=== PATIENT | female | born 1965 | race Caucasian/White ===

== ENCOUNTER 2018-06-01 12:26 | Outpatient (CLI) | payer OTHER ==
--- NOTE | 2018-06-01 14:48 | MRI ---
MRI LEFT KNEE: Date: 06-01-18 Provided Clinical History: Knee pain, Hancock's cyst. FINDINGS: Comparison is made with the study dated 10-29-14. The anterior cruciate ligament, posterior cruciate ligament, medial collateral ligament, and lateral collateral ligamentous complex demonstrate an intact MR appearance. There is increased signal intensi ty on fluid sensitive sequences involving the proximal patellar tendon compatible with tendinitis. e extensor mechanism appears otherwise unremarkable. The medial and lateral menisci demonstrate no evidence for tear. No focal articular cartilage defect is apparent. Subcortical cyst like changes are seen at the inferi or aspects of the central femoral trochlea, presumably reflecting occult articular cartilage loss. There is a small knee joint effusion. There is no evidence for Hancock's cyst. There is no area of mass -like signal alteration present in the region of clinical concern as marked on the skin surface by [facility] technologist with a vitamin E capsule. No focal concerning regional marrow or muscular signal abnor mality is evident. Edema within the lateral infrapatellar fat is re-demonstrated. IMPRESSION: 1. No MR evidence for Hancock's cyst or other signal abnormality in the region of the popliteal fossa. 2. Patellar tendinitis. 3. Edema within the lateral infrapatellar fat suggesting a patellar tracking abnormality. 4. Small knee joint effusion. POS: [facility]
== END 2018-06-01 12:27 | disposition home or self-care (01) ==
LOC: SCSMRI 12:26
PROVIDERS: ATTEND Orthopaedic Surgery
DX: M23.92 Unspecified internal derangement of left knee (principal); M76.52 Patellar tendinitis, left knee; R60.0 Localized edema; M25.462 Effusion, left knee

== ENCOUNTER 2021-09-16 11:14 | Day surgery (SDC) | payer OTHER ==
[2021-09-16] MEDS ORDERED: diphenhydrAMINE 25 MG CAP ONE (11:55)
[2021-09-16] MEDS ORDERED: Acetaminophen 500 MG TAB ONE (11:55)
[2021-09-16 13:55] VITALS: BP 133/66; TEMP 98.1
[2021-09-16 14:53] LABS: #Lymphocytes 0.4 thou/uL (1.20-3.40); #Monocytes 0.1 thou/uL (0.11-0.59); #Neutrophils 2.7 thou/uL (1.40-6.50); %Basophils 0.1 % (0.0-1.0); %Eosinophils 0.1 % (0.0-10.0); %Lymphocytes 13.4 % (21.0-51.0); %Monocytes 3.9 % (0.0-10.0); %Neutrophils 82.5 % (42.0-75.0); Hemoglobin 14.3 g/dL (12.0-16.0); MDiff Complete? YES; Mean Corpuscular HGB CONC 34.1 g/dL (32.0-36.0); Mean Corpuscular Hemoglobin 30.1 pg (27.0-31.0); Mean Corpuscular Volume 88.2 fL (78.0-98.0); Mean Platelet Volume 10.8 fL (7.4-10.4); Platelet Count 36 thou/uL (130-400); Platelet Morphology Comment Appears Decreased; Polychromasia SLIGHT = 2-3 cells (100X) (0-2/hpf); Red Blood Cell (RBC) Count 4.75 mill/uL (4.20-5.40); White Blood Cell (WBC) Count 3.3 thou/uL (4.8-10.8)
== END 2021-09-16 14:27 | disposition home or self-care (01) ==
LOC: ONC/OP 11:14
PROVIDERS: ATTEND Internal Medicine Hematology & Oncology
PROC: 30233R1 Transfusion of Nonautologous Platelets into Peripheral Vein, Percutaneous Approach (ICD-10-PCS; principal; 2021-09-16)
DX: D69.6 Thrombocytopenia, unspecified (principal); Z88.6 Allergy status to analgesic agent; Z88.8 Allergy status to other drugs, medicaments and biological substances
CPT/HCPCS: 36430; 85025; 86850; 86900; 86901; P9035

== ENCOUNTER 2022-08-13 05:51 | Day surgery (SDC) | payer OTHER ==
[2022-08-11 15:45] VITALS: BMI 31.8
[2022-08-13] MEDS ORDERED: Lidocaine 1% PF 5 ML VIAL ONE (07:55)
[2022-08-13] MEDS ORDERED: PROPOFOL 200 MG/20 ML VIAL ONE (07:55)
== END 2022-08-13 09:05 | disposition home or self-care (01) ==
LOC: SDC 05:51
PROVIDERS: ATTEND Internal Medicine
PROC: 06L38CZ Occlusion of Esophageal Vein with Extraluminal Device, Via Natural or Artificial Opening Endoscopic (ICD-10-PCS; principal; 2022-08-13)
DX: I85.00 Esophageal varices without bleeding (principal); K74.60 Unspecified cirrhosis of liver; K75.81 Nonalcoholic steatohepatitis (NASH); D69.59 Other secondary thrombocytopenia; I81 Portal vein thrombosis; I10 Essential (primary) hypertension; E78.00 Pure hypercholesterolemia, unspecified; F17.210 Nicotine dependence, cigarettes, uncomplicated; G43.909 Migraine, unspecified, not intractable, without status migrainosus; Z90.710 Acquired absence of both cervix and uterus; Z90.49 Acquired absence of other specified parts of digestive tract; Z79.899 Other long term (current) drug therapy; Z88.8 Allergy status to other drugs, medicaments and biological substances; Z88.6 Allergy status to analgesic agent
CPT/HCPCS: J2704